=== PATIENT | female | born 1980 | race Caucasian/White ===

== ENCOUNTER 2020-03-16 07:05 | Outpatient (NON) | payer OTHER, SELFPAY ==
[2020-03-16 18:30] LABS: SARS-CoV-2 RNA PCR Negative
== END 2020-03-16 07:06 ==
LOC: ANHCOVIDDT 07:20
PROVIDERS: Visit Provider Obstetrics & Gynecology
DX: Z20.828 Contact with and (suspected) exposure to other viral communicable diseases (principal)
CPT/HCPCS: 87635; C9803; U0003

== ENCOUNTER 2020-11-02 10:14 | Outpatient (CLI) | payer OTHER, SELFPAY ==
[2020-11-02] VITALS (25 sets, daily range): BP systolic 128–143; BP diastolic 75–81; PULSE 77–96; O2SAT 99–100; BMI 41.7
[2020-11-02 11:11] LABS: Basophils Absolute Auto 0.1 K/mm3 (0.0-0.1); Basophils Percent Auto 0.8 % (0.2-1.2); Eosinophils Absolute Auto 0.2 K/mm3 (0-0.3); Eosinophils Percent Auto 1.1 % (0-4.4); Hematocrit 38.6 % (37.0-47.0); Hemoglobin 12.3 g/dL (12.0-15.0); Immature Granulocyte Percent A 3.5 % (0-0.5); Lymphocytes Absolute Auto 2.96 K/mm3 (0.9-3.2); Lymphocytes Percent Auto 20.9 % (18.3-44.2); Mean Corpuscular HGB Conc 31.9 g/dl (32-36); Mean Corpuscular Hemoglobin 26.2 pg (26-34); Mean Corpuscular Volume 82.1 fl (80-100); Mean Platelet Volume 11.8 fl (7.4-10.4); Monocytes Absolute Auto 0.9 K/mm3 (0.1-0.6); Monocytes Percent Auto 6.2 % (2.6-8.5); Neutrophils Absolute Auto 9.6 K/mm3 (1.3-6.7); Neutrophils Percent Auto 67.5 % (45.5-73.1); Platelet Count Result 379 k/mm3 (150-375); White Blood Count 14.2 K/mm3 (4.5-10.0)
[2020-11-02 11:13] LABS: Add Urine Microscopic? NO; Appearance Urine Clear (Clear); Bilirubin Urine Negative (Negative); Blood Urine Negative (Negative); Color Urine Straw (Yellow); Glucose Urine UA Negative (Negative); Ketones Urine Negative (Negative); Leukocyte Esterase Ur Negative LEU/UL (Negative); Nitrate Urine Negative (Negative); Protein Urine Negative (Negative); Urobilinogen Urine Negative mg/dL (<2.0)
[2020-11-02 11:17] LABS: Total Protein Urine Random 17 mg/dL; Ur Ttl Prot Creatinine Ratio 0.63 mg/mg (0-0.20)
[2020-11-02 11:20] LABS: Alanine Aminotransferase 13 U/L (4-35); Albumin Level 3.9 g/dL (3.5-5.1); Alkaline Phosphatase 144 U/L (38-126); Anion Gap 10 mmol/L (8-16); Aspartate Amino Transferase 19 U/L (14-36); Bilirubin,Total 0.4 mg/dL (0.2-1.3); Blood Urea Nitrogen 7 mg/dL (7-17); Calcium 9.1 mg/dL (8.4-10.2); Carbon Dioxide 21 mmol/L (22-30); Chloride 106 mmol/L (98-107); Estimated Glomerular Filt Rate > 60; Glucose 106 mg/dL (65-110); Potassium 3.9 mmol/L (3.4-5.0); Sodium 137 mmol/L (137-145); Uric Acid 5.5 mg/dL (2.5-7.5)
[2020-11-02 11:22] LABS: Specific Grav Ur 1.004 (1.001-1.035)
--- NOTE | 2020-11-02 12:20 | PC.NURSE ---
Dr. Barclay on unit and informed of BP's, reactive NST, and lab results.
== END 2020-11-02 12:45 | disposition home or self-care (01) ==
LOC: ANHOBOP 10:23 → ANHOBPP 10:28
PROVIDERS: Visit Provider Student in an Organized Health Care Education/Training Program
DX: O13.9 Gestational [pregnancy-induced] hypertension without significant proteinuria, unspecified trimester (principal); Z3A.00 Weeks of gestation of pregnancy not specified
CPT/HCPCS: 36415; 59025; 80053; 81003; 82570; 84156; 84550; 85025; 99199

== ENCOUNTER 2020-11-07 05:04 | Inpatient (IN) | payer OTHER, SELFPAY ==
[2020-11-07] VITALS (106 sets, daily range): BP systolic 78–148; BP diastolic 40–98; PULSE 75–128; RESP 16; TEMP 36.4–37; O2SAT 97–100; BMI 42.5
--- NOTE | 2020-11-07 05:32 | LDADM ---
This patient, Jaja Anna, was admitted to Labor/Delivery/Recovery 103 on 11/07/20 at 05:04. Plans for labor, pain management and were discussed with patient. Patient/family oriented to hospital policies and general routines including ID bracelet, bed and alarms, visiting hours, pain management, procedures, bathroom and other care routines, personal items, smoking policy, room service/diet and guest tray routines, infant security routines, and visiting hours. Patient/Family are encouraged to report perceived risks to care and to ask questions if they do not understand what they are told or what they should do. See OBIX for further documentation.
[2020-11-07] MEDS: OXYTOCIN 30 UNITS/NS 500 ML 30 UNITS/500 ML BAG IV CONT (05:57)
[2020-11-07] MEDS: LACTATED RINGERS 1,000 ML 125 ML IV CONT ×2 (05:57→12:59)
[2020-11-07] MEDS: AMPICILLIN 2 GM/NS 100 ML 2 GM/100 ML BAG IVPB (05:58)
[2020-11-07 06:00] LABS: Basophils Absolute Auto 0.1 K/mm3 (0.0-0.1); Basophils Percent Auto 0.6 % (0.2-1.2); Eosinophils Absolute Auto 0.2 K/mm3 (0-0.3); Eosinophils Percent Auto 1.4 % (0-4.4); Hematocrit 36.2 % (37.0-47.0); Hemoglobin 11.7 g/dL (12.0-15.0); Immature Granulocyte Percent A 3.5 % (0-0.5); Lymphocytes Absolute Auto 3.62 K/mm3 (0.9-3.2); Lymphocytes Percent Auto 25.2 % (18.3-44.2); Mean Corpuscular HGB Conc 32.3 g/dl (32-36); Mean Corpuscular Hemoglobin 26.8 pg (26-34); Mean Platelet Volume 11.6 fl (7.4-10.4); Monocytes Percent Auto 6.7 % (2.6-8.5); Neutrophils Percent Auto 62.6 % (45.5-73.1); Platelet Count Result 335 k/mm3 (150-375); Red Blood Count 4.36 M/mm3 (4.2-5.4); Red Cell Distribution Width 15.2 % (11.5-14.5); White Blood Count 14.4 K/mm3 (4.5-10.0)
--- NOTE | 2020-11-07 07:09 | WPDHPUPDATE1 ---
History and Physical Update Update Date/Time: 11/07/20 07:09 39 yo at 38w3d who presents for IOL for preeclampsia without severe features. Pt endorses good FM. She denies any contractions. She denies any vaginal bleeding or leakage of fluid. She denies any ANDERSON, RUQ pain, scotoma or change in LE edema. History and Physical has been reviewed, including an updated exam of the patient. There are NO changes in the patient's condition. Risks, benefits, and alternatives have been discussed and questions answered. Patient agrees to proceed with procedure. A/P: 39 yo at 38w3d with preeclampsia admit to L&D routine admission orders Rh+ GBS +, will give PCN in labor plan for pitocin IOL BP nl today continue to monitor BP, will treat with magnesium if severe range AROM for augmentation FHT cat 1 contiuous EFM
--- NOTE | 2020-11-07 09:13 | WPDANESEPP ---
Anes - Eval Pre Procedure Procedure: labor epidural Date/Time: 11/07/20 09:13 Pre Op Diagnosis: IOL Patient Data Age: 39 Gender: F Height: 1.65 m Weight: 116 kg Last Vital Signs Temp 36.6 C 11/07/20 08:31 Pulse 87 11/07/20 09:01 BP 133/69 11/07/20 09:01 Allergies Allergy/AdvReac Type Severity Reaction Status Date / Time No Known Allergies Allergy Mild Verified 10/18/20 15:37 Home Medications Medication Instructions Recorded Confirmed Type ergocalciferol (vitamin D2) 1,250 mcg PO WEEKLY 10/18/20 11/02/20 History [Vitamin D2] fexofenadine-pseudoephedrine 1 tablet PO HS 10/18/20 11/02/20 History [Terra-D 24 Hour] docosahexaenoic acid 450 mg PO DAILY 11/02/20 11/02/20 History folic acid 2 mg PO DAILY 11/02/20 11/02/20 History Laboratory Tests 11/07/20 11/07/20 11/07/20 05:50 05:51 05:51 WBC 14.4 K/mm3 H K/mm3 (4.5-10.0) RBC 4.36 M/mm3 M/mm3 (4.2-5.4) Hgb 11.7 g/dL L g/dL (12.0-15.0) Hct 36.2 % L % (37.0-47.0) MCV 83.0 fl fl (80-100) MCH 26.8 pg pg (26-34) MCHC 32.3 g/dl g/dl (32-36) RDW 15.2 % H % (11.5-14.5) Plt Count 335 k/mm3 k/mm3 (150-375) MPV 11.6 fl H fl (7.4-10.4) Immature Gran % (Auto) 3.5 % H % (0-0.5) Neut % (Auto) 62.6 % % (45.5-73.1) Lymph % (Auto) 25.2 % % (18.3-44.2) [place] % (Auto) 6.7 % % (2.6-8.5) Eos % (Auto) 1.4 % % (0-4.4) Baso % (Auto) 0.6 % % (0.2-1.2) Lymph # (Auto) 3.62 K/mm3 H K/mm3 (0.9-3.2) [place] # (Auto) 1.0 K/mm3 H K/mm3 (0.1-0.6) Eos # (Auto) 0.2 K/mm3 K/mm3 (0-0.3) Baso # (Auto) 0.1 K/mm3 K/mm3 (0.0-0.1) Abs Immat Gran (auto) 0.50 K/mm3 H K/mm3 (0.00-0.031) Absolute Neuts (auto) 9.0 K/mm3 H K/mm3 (1.3-6.7) Absolute Nucleated RBC 0.0 K/mm3 K/mm3 (0.0-0.012) Nucleated RBC % 0.0 % % (0.0-0.2) RPR Pending Blood Type O Positive Antibody Screen Negative Patient hx anesthesia problems: none Family hx anesthesia problems: none [facility] Family History Family History Mother Hypertension Sibling Autoimmune disease Grandparent Thyroid disease Social History Social History Smoking status: Never smoker Substance use: never Spiritual care concerns: No Exam Day of Procedure 11/07/20 09:13 Patient weight: morbidly obese Heart: regular rate and rhythm Lungs: normal air movement Airway: Mallampati scale class III Neurological: alert and oriented
--- NOTE | 2020-11-07 09:55 | PM.OBPNLAB ---
Pain Control Date/time seen: 11/07/20 09:55 Pain control: tolerating well Pelvic Exam Dilation (cm): 2 Effacement (%): 50 station: -3 Amniotic membrane status: Intact Status status: Category l Assessment and Plan Comments: AROM for clear fluid
[2020-11-07 10:05] LABS: Rapid Plasma Reagin Non-Reactive (NonReactive)
[2020-11-07] MEDS: AMPICILLIN 1 GM/NS 50 ML 1 GM/50 ML BAG IVPB ×2 (10:11→13:47)
[2020-11-07] MEDS: SODIUM CHLORIDE 0.9% IV 300 ML 600 ML I-UTERINE (13:49)
--- NOTE | 2020-11-07 16:10 | PM.OBPRVD ---
OB - Delivery Note Procedure Delivery date: 11/07/20 Procedure: Patient pushed for a spontaneous vaginal delivery. Nuchal x1 was noted and delivered through. The fetus was delivered atraumatically and placed on the maternal abdomen. The cord was clamped and cut after 1 minute of life. The cord was double clamped and cut and a segment of cord was collected for cord gases. Cord blood was collected for blood type and Coomb's testing. The placenta delivered spontaneously and was noted to be intact. The perineum was inspected and there was a 1st degree perineal laceration. The laceration was repaired with 3-0 vicryl in the usual fashion. The uterus was firm and good hemostasis was noted. The patient and fetus were stable in the delivery room. events: Induced HTN and Pre-Eclampsia Intrapartal events: None Induction method: per pitocin protocol Delivery augmentation: rupture of membranes Delivery monitor: external FHT Route of delivery: Episiotomy description: None Laceration Description: Perineal - 1st Degree Delivery repair: vicryl Specimen: No Quantitative Blood Loss (ml): 250 Anesthesia type: Epidural Disposition: floor () Complications: No immediate complications Baby Date of : 11/07/20 Time of : 15:58 Weeks of gestation at delivery: 38 Infant gender: Female Weight (pounds): 6 Weight (ounces): 11 presentation: vertex position: Right Occiput Anterior Placenta delivery description: Spontaneous cord vessel description: Nuchal Cord score one minute: 8 score five minutes: 9
[2020-11-07] MEDS: OXYTOCIN 30 UNITS/NS 500 ML 30 UNITS/500 ML BAG 125 UNITS IV CONT (16:27)
[2020-11-07] MEDS: IBUPROFEN 600 MG TABLET PO (18:20)
[2020-11-07] MEDS: ALBUTEROL SULFATE (*SP) AEROSOL 1 PUFF 2 PUFF INHALATION (18:59)
[2020-11-07] MEDS: WITCH HAZEL 40 PADS 1 PAD TOPICAL (19:10)
[2020-11-07] MEDS: BENZOCAINE 20% AER SPR (*SP) 56 GM CAN 1 SPRAY TOPICAL (19:10)
--- NOTE | 2020-11-07 19:22 | OBPPTRN ---
Patient transferred to post room # 290 via wheelchair. Support person present. Oriented to unit, room, information board, rooming in, admission packet and security measures. Patient verbalizes understanding.
[2020-11-08] MEDS: ACETAMINOPHEN 325 MG TABLET 650 MG PO (00:37)
[2020-11-08 04:12] VITALS: BP 121/63; PULSE 78; RESP 16; TEMP 36.6; O2SAT 98
[2020-11-08 06:00] LABS: Hematocrit 34.3 % (37.0-47.0); Hemoglobin 10.8 g/dL (12.0-15.0)
--- NOTE | 2020-11-08 06:31 | PM.OBDSVD ---
DS: Admitting Diagnosis Admitting Diagnosis intrauterine at term preeclampsia without severe features OB - DS: Summary OB Procedures : None OB Procedures Intrapartum: Spontaneous Vag Delivery OB Procedures: : None Status at Discharge Functional status at discharge: independent ambulation Overall status at discharge: patient is back to baseline Time Spent with Patient Time attestation: Total time spent providing and/or coordinating discharge services: Time spent: Less than 30 minutes Exam Const: General: comfortable and no acute distress Resp: Effort & Inspection: normal respiratory effort Auscultation: clear to auscultation bilaterally Cardio: Rate: regular rate GI: GI Palp: Yes Soft to palpation Auscultation: normal bowel sounds Other: Fundus firm below umbilicus Psych: Appearance: grossly normal Mental Status: mental status grossly normal Affect: normal affect DS: Data Data Completed and Pending Labs on day of discharge: Labs from last 24 hours 11/08/20 11/07/20 11/07/20 04:51 05:51 05:51 Hgb 10.8 L Hct 34.3 L RPR Non-reactive Blood Type O Positive Antibody Screen Negative Discharge Plan Discharge Discharging Clinician: Thomas Barclay Patient Disposition: Home, Self-Care Activity: as tolerated and pelvic rest Diet: regular Discharge Instructions: call or return for temperature >100.4, bleeding >2 pads/hr for 2 hrs, pain not controlled with medications, signs/symptoms of mastitis Patient Instructions: Antibiotic Form, Preeclampsia and Eclampsia After Delivery (GEN), Vaginal Delivery (DC) Stand Alone Forms: General Discharge Information Follow-up/Referrals: Sammy Bee MD [Physician] - 1 Week Discharge Medications: New acetaminophen [Mapap (acetaminophen)] 325 mg Tablet 650 mg PO Q6H PRN (Reason: Mild Pain (1-3) Or Headache) Qty: 30 RF: 0 ibuprofen 600 mg Tablet 600 mg PO Q6H PRN (Reason: Cramping) Qty: 30 RF: 0 Continued Terra-D 24 Hour 180-240 mg Tablet Extended Release 24 Hr 1 tablet PO HS RF: 0 Discontinued folic acid 1 mg Tablet 2 mg PO DAILY RF: 0 docosahexaenoic acid 450 mg Capsule 450 mg PO DAILY RF: 0 ergocalciferol (vitamin D2) [Vitamin D2] 1,250 mcg (50,000 unit) Capsule 1,250 mcg PO WEEKLY RF: 0 Date of admission: 11/07/20 05:04 Primary Care Provider: PHYSIC[facility] Admitting Provider: Sammy Bee Attending physician on admission: Sammy Bee Condition: Stable
[2020-11-08 08:00] VITALS: BP 120/74; PULSE 78; RESP 18; TEMP 36.6
--- NOTE | 2020-11-08 08:01 | WPDANLDPN2 ---
Anes-Prog Note L&D Date/Time: 11/08/20 08:01 Comfortable throughout: labor and delivery Neuraxial method: epidural Epidural/Spinal procedure site: clean & non-tender Neuro status: Neuro function grossly intact. Cardiovascular status: normal Respiratory status: normal Airway patency: baseline Mental status: baseline Post-Op hydration status: normal Vital Signs: Last Vital Signs Temp 36.6 C 11/08/20 04:12 Pulse 78 11/08/20 04:12 Resp 16 11/08/20 04:12 BP 121/63 11/08/20 04:12 Pulse Ox 98 11/08/20 04:12 Pain score (VAS): 0 I/O: Intake & Output 11/07/20 11/08/20 11/08/20 23:59 07:59 15:59 Intake Total 1100 Output Total 338 Balance 762 Post-procedural complaints: none Patient feedback: Patient satisfied with anesthetic care.
[2020-11-08] MEDS: LANOLIN (LANSINOH) 7.5 GM CREAM 1 APPLIC TOPICAL (08:34)
[2020-11-08] MEDS: BENZOCAINE 20% AER SPR (*SP) 56 GM CAN 1 SPRAY TOPICAL (08:34)
[2020-11-08] MEDS: WITCH HAZEL 40 PADS 1 PAD TOPICAL (08:34)
[2020-11-08] MEDS: IBUPROFEN 600 MG TABLET PO ×2 (08:35→15:55)
[2020-11-08] MEDS: DOCUSATE SODIUM 100 MG CAPSULE PO ×2 (08:35→15:55)
[2020-11-08] MEDS: MULTIVIT/MIN/PREN/FOL AC/IRON TABLET 1 TAB PO (08:35)
[2020-11-08 12:02] VITALS: BP 150/77; PULSE 88; RESP 18; TEMP 36.9; O2SAT 99
[2020-11-09 10:35] VITALS: BP 140/63; PULSE 78; RESP 20; TEMP 36.9; O2SAT 100
== END 2020-11-08 19:08 | disposition home or self-care (01) | DRG 807 ==
LOC: ANHOB2 11-08 16:11 → ANHLDR 11-09 11:25 → ANHOB2 11-09 11:25
PROVIDERS: Admitting Provider Student in an Organized Health Care Education/Training Program; Visit Provider Student in an Organized Health Care Education/Training Program
DX: O14.94 Unspecified pre-eclampsia, complicating childbirth (principal); Z37.0 Single live birth; Z3A.38 38 weeks gestation of pregnancy; O70.0 First degree perineal laceration during delivery; O36.8330 Maternal care for abnormalities of the fetal heart rate or rhythm, third trimester, not applicable or unspecified; O69.81X0 Labor and delivery complicated by cord around neck, without compression, not applicable or unspecified; O99.824 Streptococcus B carrier state complicating childbirth
CPT/HCPCS: 36415; 85014; 85018; 85025; 86592; 86850; 86900; 86901; A9270; J0290; J2590; J2795; J7030; J7120